=== PATIENT | female | born 1935 | race Caucasian/White ===

== ENCOUNTER 2017-05-12 11:52 | Observation (INO) | payer MEDICARE, BC ==
[~2017-05-12] VITALS: Ht 167.6 cm; Wt 60.1 kg
[2017-05-12] VITALS (13 sets, daily range): BP systolic 131–150; BP diastolic 59–76
[~2017-05-12 11:52] MED LIST: DOCU-109 PO; FERR325T72 PO; LOSA25TA PO; LOSA25TA4 PO; PANT40TA5 PO
--- NOTE | 2017-05-12 12:49 | EKG ---
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
--- NOTE | 2017-05-12 13:01 | PHYS DOC ---
Past Medical History Past Medical History: Hypertension Past Surgical History: Tonsillectomy, Other Additional Past Surgical Histo: SKIN CANCERS REMOVED Alcohol Use: None Drug Use: None Adult General Chief Complaint Chief Complaint: WEAKNESS/GENERALIZED HPI HPI Patient is a 81 year old female presenting to the emergency department for 2 primary complaints including right neck and shoulder pain in addition to generalized weakness. The neck and shoulder pain is in the right trapezius muscle and she says it has been bothering her since January and it hurts whenever she palpates it or moves it and it is relieved by NSAIDs. Is that the pain is gone right now she took 2 Aleve's prior to arrival. She also says that she has been weak and fatigued and she describes this as she is getting tired more easily and getting up walking around makes her more tired than usual. This has been going on for at least the past week. She denies any shortness of breath nausea vomiting diaphoresis fevers chills. Review of Systems Review of Systems Constitutional: Denies fever or chills [] Eyes: Denies change in visual acuity, redness, or eye pain [] HENT: Denies nasal congestion or sore throat [] Respiratory: Denies cough or shortness of breath [] Cardiovascular: No additional information not addressed in HPI [] GI: Denies abdominal pain, nausea, vomiting, bloody stools or diarrhea [] : Denies dysuria or hematuria [] Musculoskeletal: Denies back pain. + R shoulder joint pain [] Integument: Denies rash or skin lesions [] Neurologic: Denies headache, focal weakness or sensory changes [] \\ Current Medications Current Medications Current Medications Medications (Trade) Dose Ordered Sig/Radha Start Time Stop Time Status Last Admin Dose Admin Acetaminophen/ Hydrocodone Bitart (Lortab 5/325) 1 tab 1X ONCE 05/12/17 14:15 05/12/17 14:16 DC 05/12/17 14:35 1 TAB Dexamethasone (Decadron) 6 mg 1X STAT 05/12/17 14:11 05/12/17 14:12 DC 05/12/17 14:35 4 MG Allergies Allergies Allergies Coded Allergies Type Severity Reaction Last Updated Verified No Known Drug Allergies 04/06/16 No Physical Exam Physical Exam Constitutional: Well developed, well nourished, no acute distress, non-toxic appearance. [] HENT: Normocephalic, atraumatic, bilateral external ears normal, oropharynx moist, no oral exudates, nose normal. [] Eyes: PERRLA, EOMI, conjunctiva normal, no discharge. [] Neck: Normal range of motion, positive right cervical spine paraspinal tenderness that goes into her right trapezius muscle. Cardiovascular:Heart rate regular rhythm, no murmur [] Lungs & Thorax: Bilateral breath sounds clear to auscultation [] Abdomen: Bowel sounds normal, soft, no tenderness, no masses, no pulsatile masses. [] Skin: Warm, dry, no erythema, no rash. [] Back: No tenderness, no CVA tenderness. [] Extremities: No tenderness, no cyanosis, no clubbing, ROM intact, no edema. [] Neurologic: Alert and oriented X 3, normal motor function, normal sensory function, no focal deficits noted. [] Current Patient Data Vital Signs Vital Signs Date Time Temp Pulse Resp B/P (MAP) Pulse Ox O2 Delivery O2 Flow Rate FiO2 05/12/17 12:18 98.1 81 20 174/74 (107) 96 Room Air 98.1 Lab Values Laboratory Tests Test 05/12/17 12:09 05/12/17 13:00 05/12/17 13:55 Urine Collection Type Unknown Urine Color Yellow Urine Clarity Clear Urine pH 6.5 Urine Specific [place] 1.025 Urine Protein Negative mg/dL (NEG-TRACE) Urine Glucose (UA) Negative mg/dL (NEG) Urine Ketones (Stick) Negative mg/dL (NEG) Urine Blood Negative (NEG) Urine Nitrite Negative (NEG) Urine Bilirubin Negative (NEG) Urine Urobilinogen Dipstick 1.0 mg/dL (0.2 mg/dL) Urine Leukocyte Esterase Moderate (NEG) Urine RBC 0 /HPF (0-2) Urine WBC 5-10 /HPF (0-4) Urine Squamous Epithelial Cells Mod /LPF Urine Bacteria Few /HPF (0-FEW) Urine Mucus Mod /LPF Sodium Level 141 mmol/L (136-145) Potassium Level 4.4 mmol/L (3.5-5.1) Chloride Level 106 mmol/L (98-107) Carbon Dioxide Level 28 mmol/L (21-32) Anion Gap 7 (6-14) Blood Urea Nitrogen 24 mg/dL (7-20) H Creatinine 0.9 mg/dL (0.6-1.0) Estimated GFR (Cockcroft-Gault) 60.4 BUN/Creatinine Ratio 27 (6-20) H Glucose Level 112 mg/dL (70-99) H Calcium Level 9.4 mg/dL (8.5-10.1) Magnesium Level 2.4 mg/dL (1.8-2.4) Total Bilirubin 0.2 mg/dL (0.2-1.0) Aspartate Amino Transferase (AST) 21 U/L (15-37) Alanine Aminotransferase (ALT) 21 U/L (14-59) Alkaline Phosphatase 102 U/L (46-116) Creatine Kinase 68 U/L (26-192) Troponin I Quantitative < 0.017 ng/mL (0.000-0.055) SD-Qwo-U-Type Natriuretic Peptide 225 pg/mL (0-449) Total Protein 6.5 g/dL (6.4-8.2) Albumin 3.5 g/dL (3.4-5.0) Albumin/Globulin Ratio 1.2 (1.0-1.7) Thyroid Stimulating Hormone (TSH) 3.865 uIU/mL (0.358-3.74) H White Blood Count 5.0 x10^3/uL (4.0-11.0) Red Blood Count 2.49 x10^6/uL (3.50-5.40) L Hemoglobin 7.0 g/dL (12.0-15.5) *L Hematocrit 21.0 % (36.0-47.0) *L Mean Corpuscular Volume 85 fL (79-100) Mean Corpuscular Hemoglobin 28 pg (25-35) Mean Corpuscular Hemoglobin Concent 33 g/dL (31-37) Red Cell Distribution Width 17.0 % (11.5-14.5) H Platelet Count 276 x10^3/uL (140-400) Neutrophils (%) (Auto) 65 % (31-73) Lymphocytes (%) (Auto) 22 % (24-48) L Monocytes (%) (Auto) 9 % (0-9) Eosinophils (%) (Auto) 3 % (0-3) Basophils (%) (Auto) 1 % (0-3) Neutrophils # (Auto) 3.3 x10^3uL (1.8-7.7) Lymphocytes # (Auto) 1.1 x10^3/uL (1.0-4.8) Monocytes # (Auto) 0.4 x10^3/uL (0.0-1.1) Eosinophils # (Auto) 0.2 x10^3/uL (0.0-0.7) Basophils # (Auto) 0.0 x10^3/uL (0.0-0.2) Prothrombin Time 13.2 SEC (11.7-14.0) Prothrombin Time INR 1.1 (0.8-1.1) PTT 27 SEC (24-38) Laboratory Tests 05/12/17 13:55 Laboratory Tests 05/12/17 13:00 EKG EKG Sinus rhythm at 77 bpm with leftward axis no obvious ST elevation or depression and normal T waves. Radiology/Procedures Radiology/Procedures Examination: CT cervical spine without contrast History: History of right-sided neck pain for 3 to 4 days Comparison: None available Technique: Axial CT images of the cervical spine was performed without contrast. Coronal and sagittal reformats are performed PQRS Compliance Statement: One or more of the following individualized dose reduction techniques were utilized for this examination: 1. Automated exposure control 2. Adjustment of the mA and/or kV according to patient size 3. Use of iterative reconstruction technique Findings: The vertebral body heights are maintained. There is moderate to severe intervertebral disc height loss identified at C4-C5, C5-C6, C6-C7 vertebral levels. The bilateral facets are well aligned. The lateral masses of C1 are aligned with C2 vertebra. The C2 dens appears intact. Evaluation of the upper thoracic vertebra is limited due to significant motion artifact. There is mild intervertebral disc and loss identified at C3-C4 vertebral level with small disc protrusion posteriorly. Small anterior and posterior osteophyte formation identified at C4-C5, C5-C6, C6-C7 vertebral levels. Moderate multilevel uncovertebral degenerative changes. No acute fracture identified. Calcification in the apical pleura of the lungs. Impression: 1. No acute fracture of the cervical spine. Correlate clinically. 2. 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 3. Evaluation of the upper thoracic vertebra limited due to motion artifact. DICTATED and SIGNED BY: ELIAS GARCIA MD DATE: 05/12/17 3448 Course & Med Decision Making Course & Med Decision Making Patient is profoundly anemic and she is symptomatic from his so recommended admission so she can get blood transfusion. Patient will be admitted for transfusion and Decadron this morning and pain medicines for her right shoulder pain which I think is from cervical radiculopathy. Dragon Disclaimer Dragon Disclaimer This electronic medical record was generated, in whole or in part, using a voice recognition dictation system. Departure Departure Impression: Primary Impression: Cervical radiculopathy Additional Impression: Anemia Disposition: ADMITTED INPATIENT Admitting Physician: Ronal Xie Condition: STABLE Referrals: MARLO PATE MD (PCP) Problem Qualifiers FEDERICO COWAN DO May 12, 2017 13:01
--- NOTE | 2017-05-12 13:06 | RAD ---
Examination: CT cervical spine without contrast History: History of right-sided neck pain for 3 to 4 days Comparison: None available Technique: Axial CT images of the cervical spine was performed without contrast. Coronal and sagittal reformats are performed PQRS Compliance Statement: One or more of the following individualized dose reduction techniques were utilized for this examination: 1. Automated exposure control 2. Adjustment of the mA and/or kV according to patient size 3. Use of iterative reconstruction technique Findings: The vertebral body heights are maintained. There is moderate to severe intervertebral disc height loss identified at C4-C5, C5-C6, C6-C7 vertebral levels. The bilateral facets are well aligned. The lateral masses of C1 are aligned with C2 vertebra. The C2 dens appears intact. Evaluation of the upper thoracic vertebra is limited due to significant motion artifact. There is mild intervertebral disc and loss identified at C3-C4 vertebral level with small disc protrusion posteriorly. Small anterior and posterior osteophyte formation identified at C4-C5, C5-C6, C6-C7 vertebral levels. Moderate multilevel uncovertebral degenerative changes. No acute fracture identified. Calcification in the apical pleura of the lungs. Impression: 1. No acute fracture of the cervical spine. Correlate clinically. 2. 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 3. Evaluation of the upper thoracic vertebra limited due to motion artifact.
[2017-05-12 13:28] LABS: CALCIUM 9.4 mg/dL (8.5-10.1); CREATININE 0.9 mg/dL (0.6-1.0); GFR 60.4; POTASSIUM 4.4 mmol/L (3.5-5.1)
[2017-05-12 13:34] LABS: ALBUMIN 3.5 g/dL (3.4-5.0); ALBUMIN/GLOBULIN RATIO 1.2 (1.0-1.7); MAGNESIUM 2.4 mg/dL (1.8-2.4); TOTAL BILIRUBIN 0.2 mg/dL (0.2-1.0); TOTAL PROTEIN 6.5 g/dL (6.4-8.2)
[2017-05-12 13:44] LABS: BILIRUBIN,URINE NEGATIVE (NEG); GLUCOSE,URINE NEGATIVE (NEG); NITRITE,URINE NEGATIVE (NEG); PH,URINE 6.5; PROTEIN,URINE NEGATIVE (NEG-TRACE)
[2017-05-12 13:52] LABS: BACTERIA,URINE FEW /HPF (0-FEW); RBC,URINE 0 /HPF (0-2); SQUAMOUS EPITHELIAL CELL,UR MOD /LPF
[2017-05-12 14:09] LABS: BASO % 1 % (0-3); EOS % 3 % (0-3); LYMPH # 1.1 x10^3/uL (1.0-4.8); LYMPH % 22 % (24-48); MEAN CORPUSCULAR HEMOGLOBIN 28 pg (25-35); MEAN CORPUSCULAR HGB CONC 33 g/dL (31-37); MEAN CORPUSCULAR VOLUME 85 fL (79-100); MONO % 9 % (0-9); NEUT % 65 % (31-73); PLATELET COUNT 276 x10^3/uL (140-400); RED BLOOD COUNT 2.49 x10^6/uL (3.50-5.40)
[2017-05-12] MEDS ORDERED: DEXAMETHASONE 4 MG TABLET PO STA (14:11)
[2017-05-12 14:12] LABS: INR 1.1 (0.8-1.1); PROTHROMBIN TIME PATIENT 13.2 SEC (11.7-14.0)
[2017-05-12] MEDS ORDERED: HYDROcodone/APAP 5/325MG 1 TAB TABLET PO ONE (14:15)
[2017-05-12] MEDS ORDERED: fentaNYL PF VIAL 100 MCG/2 ML VIAL IV PRN (14:45)
[2017-05-12] MEDS ORDERED: ONDANSETRON PF 4 MG/2 ML VIAL. IV PRN ×2 (14:45→17:45)
--- NOTE | 2017-05-12 17:35 | PDOC1 ---
History and Physical History of Present Illness History of Present Illness Date of exam 05/12/2017 Chief complaint: Generalized weakness ,tiredness. History of present illness: A 81-year-old female patient with prior history of anemia was been on iron supplements present to the ER with complaints of right neck pain which has been there from last January however for the last 4 days neck pain is getting slowly worse. Also she is getting tired even if she walks to the bathroom. She was followed up by a . [facility] physicians for workup for anemia however they could not able to diagnose her condition as per the patient. Today patient says her pain is been intractable nature and requiring medications to control her pain rated as a 9 out of 10. She denies any other symptoms such as chest pain palpitations syncope. Past medical history: hypertension and anemia Past Medical History Cardiovascular: HTN Family History Family History: Coronary Artery Disease Social History Smoke: No ALCOHOL: none Drugs: None Current Problem List Problem List Problems Medical Problems: (1) Anemia Status: Acute (2) Cervical radiculopathy Status: Acute Current Medications Current Medications Current Medications Medications (Trade) Dose Ordered Sig/Radah Start Time Stop Time Status Last Admin Dose Admin Acetaminophen/ Hydrocodone Bitart (Lortab 5/325) 1 tab PRN Q4HRS PRN 05/12/17 16:00 Dexamethasone (Decadron) 6 mg 1X STAT 05/12/17 14:11 05/12/17 14:12 DC 05/12/17 14:35 4 MG Fentanyl Citrate (Fentanyl 2ml Vial) 50 mcg PRN Q2HR PRN 05/12/17 14:45 05/13/17 14:44 Ondansetron HCl (Zofran) 4 mg PRN Q8HRS PRN 05/12/17 14:45 05/13/17 14:44 Allergies Allergies Allergies Coded Allergies Type Severity Reaction Last Updated Verified No Known Drug Allergies 04/06/16 No ROS Review of System CONSTITUTIONAL: weakness EYES: No recent changes SKIN: No rash or itching CARDIOVASCULAR: No chest pain, syncope, palpitations, or edema RESPIRATORY: No SOB or cough GASTROINTESTINAL: No nausea, vomiting or abdominal pain NEUROLOGICAL: No headaches or weakness ENDOCRINE: No cold or heat intolerance GENITOURINARY: No urgency or frequency of urination MUSCULOSKELETAL: No back pain or joint pain LYMPHATICS: No enlarged lymph nodes PSYCHIATRIC: No anxiety or depression Physical Exam Physical Exam GEN.: No apparent distress. Alert and oriented. 3, thin built HEENT: Head is normocephalic, atraumatic NECK: Supple. LUNGS: Clear to auscultation. Normal anterior airflow HEART: RRR, S1, S2 present. Peripheral pulses intact ABDOMEN: Soft, nontender. Positive bowel sounds. EXTREMITIES: Without any cyanosis. NEUROLOGIC: Normal speech, normal tone PSYCHIATRIC: Normal affect, normal mood. SKIN: No ulcerations Vitals Vitals Vital Signs Date Time Temp Pulse Resp B/P (MAP) Pulse Ox O2 Delivery O2 Flow Rate FiO2 05/12/17 16:17 98.1 78 20 131/59 98.1 05/12/17 16:02 Room Air 05/12/17 15:36 97 Labs Labs Laboratory Tests Test 05/12/17 12:09 05/12/17 13:00 05/12/17 13:55 Urine Collection Type Unknown Urine Color Yellow Urine Clarity Clear Urine pH 6.5 Urine Specific [place] 1.025 Urine Protein Negative mg/dL (NEG-TRACE) Urine Glucose (UA) Negative mg/dL (NEG) Urine Ketones (Stick) Negative mg/dL (NEG) Urine Blood Negative (NEG) Urine Nitrite Negative (NEG) Urine Bilirubin Negative (NEG) Urine Urobilinogen Dipstick 1.0 mg/dL (0.2 mg/dL) Urine Leukocyte Esterase Moderate (NEG) Urine RBC 0 /HPF (0-2) Urine WBC 5-10 /HPF (0-4) Urine Squamous Epithelial Cells Mod /LPF Urine Bacteria Few /HPF (0-FEW) Urine Mucus Mod /LPF Sodium Level 141 mmol/L (136-145) Potassium Level 4.4 mmol/L (3.5-5.1) Chloride Level 106 mmol/L (98-107) Carbon Dioxide Level 28 mmol/L (21-32) Anion Gap 7 (6-14) Blood Urea Nitrogen 24 mg/dL (7-20) Creatinine 0.9 mg/dL (0.6-1.0) Estimated GFR (Cockcroft-Gault) 60.4 BUN/Creatinine Ratio 27 (6-20) Glucose Level 112 mg/dL (70-99) Calcium Level 9.4 mg/dL (8.5-10.1) Magnesium Level 2.4 mg/dL (1.8-2.4) Total Bilirubin 0.2 mg/dL (0.2-1.0) Aspartate Amino Transf (AST/SGOT) 21 U/L (15-37) Alanine Aminotransferase (ALT/SGPT) 21 U/L (14-59) Alkaline Phosphatase 102 U/L (46-116) Creatine Kinase 68 U/L (26-192) Troponin I Quantitative < 0.017 ng/mL (0.000-0.055) LP-Frh-V-Type Natriuretic Peptide 225 pg/mL (0-449) Total Protein 6.5 g/dL (6.4-8.2) Albumin 3.5 g/dL (3.4-5.0) Albumin/Globulin Ratio 1.2 (1.0-1.7) Thyroid Stimulating Hormone (TSH) 3.865 uIU/mL (0.358-3.74) White Blood Count 5.0 x10^3/uL (4.0-11.0) Red Blood Count 2.49 x10^6/uL (3.50-5.40) Hemoglobin 7.0 g/dL (12.0-15.5) Hematocrit 21.0 % (36.0-47.0) Mean Corpuscular Volume 85 fL (79-100) Mean Corpuscular Hemoglobin 28 pg (25-35) Mean Corpuscular Hemoglobin Concent 33 g/dL (31-37) Red Cell Distribution Width 17.0 % (11.5-14.5) Platelet Count 276 x10^3/uL (140-400) Neutrophils (%) (Auto) 65 % (31-73) Lymphocytes (%) (Auto) 22 % (24-48) Monocytes (%) (Auto) 9 % (0-9) Eosinophils (%) (Auto) 3 % (0-3) Basophils (%) (Auto) 1 % (0-3) Neutrophils # (Auto) 3.3 x10^3uL (1.8-7.7) Lymphocytes # (Auto) 1.1 x10^3/uL (1.0-4.8) Monocytes # (Auto) 0.4 x10^3/uL (0.0-1.1) Eosinophils # (Auto) 0.2 x10^3/uL (0.0-0.7) Basophils # (Auto) 0.0 x10^3/uL (0.0-0.2) Prothrombin Time 13.2 SEC (11.7-14.0) Prothromb Time International Ratio 1.1 (0.8-1.1) Activated Partial Thromboplast Time 27 SEC (24-38) Laboratory Tests Test 05/12/17 12:09 05/12/17 13:00 05/12/17 13:55 Urine Collection Type Unknown Urine Color Yellow Urine Clarity Clear Urine pH 6.5 Urine Specific [place] 1.025 Urine Protein Negative mg/dL (NEG-TRACE) Urine Glucose (UA) Negative mg/dL (NEG) Urine Ketones (Stick) Negative mg/dL (NEG) Urine Blood Negative (NEG) Urine Nitrite Negative (NEG) Urine Bilirubin Negative (NEG) Urine Urobilinogen Dipstick 1.0 mg/dL (0.2 mg/dL) Urine Leukocyte Esterase Moderate (NEG) Urine RBC 0 /HPF (0-2) Urine WBC 5-10 /HPF (0-4) Urine Squamous Epithelial Cells Mod /LPF Urine Bacteria Few /HPF (0-FEW) Urine Mucus Mod /LPF Sodium Level 141 mmol/L (136-145) Potassium Level 4.4 mmol/L (3.5-5.1) Chloride Level 106 mmol/L (98-107) Carbon Dioxide Level 28 mmol/L (21-32) Anion Gap 7 (6-14) Blood Urea Nitrogen 24 mg/dL (7-20) Creatinine 0.9 mg/dL (0.6-1.0) Estimated GFR (Cockcroft-Gault) 60.4 BUN/Creatinine Ratio 27 (6-20) Glucose Level 112 mg/dL (70-99) Calcium Level 9.4 mg/dL (8.5-10.1) Magnesium Level 2.4 mg/dL (1.8-2.4) Total Bilirubin 0.2 mg/dL (0.2-1.0) Aspartate Amino Transf (AST/SGOT) 21 U/L (15-37) Alanine Aminotransferase (ALT/SGPT) 21 U/L (14-59) Alkaline Phosphatase 102 U/L (46-116) Creatine Kinase 68 U/L (26-192) Troponin I Quantitative < 0.017 ng/mL (0.000-0.055) BD-Xnb-J-Type Natriuretic Peptide 225 pg/mL (0-449) Total Protein 6.5 g/dL (6.4-8.2) Albumin 3.5 g/dL (3.4-5.0) Albumin/Globulin Ratio 1.2 (1.0-1.7) Thyroid Stimulating Hormone (TSH) 3.865 uIU/mL (0.358-3.74) White Blood Count 5.0 x10^3/uL (4.0-11.0) Red Blood Count 2.49 x10^6/uL (3.50-5.40) Hemoglobin 7.0 g/dL (12.0-15.5) Hematocrit 21.0 % (36.0-47.0) Mean Corpuscular Volume 85 fL (79-100) Mean Corpuscular Hemoglobin 28 pg (25-35) Mean Corpuscular Hemoglobin Concent 33 g/dL (31-37) Red Cell Distribution Width 17.0 % (11.5-14.5) Platelet Count 276 x10^3/uL (140-400) Neutrophils (%) (Auto) 65 % (31-73) Lymphocytes (%) (Auto) 22 % (24-48) Monocytes (%) (Auto) 9 % (0-9) Eosinophils (%) (Auto) 3 % (0-3) Basophils (%) (Auto) 1 % (0-3) Neutrophils # (Auto) 3.3 x10^3uL (1.8-7.7) Lymphocytes # (Auto) 1.1 x10^3/uL (1.0-4.8) Monocytes # (Auto) 0.4 x10^3/uL (0.0-1.1) Eosinophils # (Auto) 0.2 x10^3/uL (0.0-0.7) Basophils # (Auto) 0.0 x10^3/uL (0.0-0.2) Prothrombin Time 13.2 SEC (11.7-14.0) Prothromb Time International Ratio 1.1 (0.8-1.1) Activated Partial Thromboplast Time 27 SEC (24-38) VTE Prophylaxis Ordered VTE Prophylaxis Devices: Yes VTE Pharmacological Prophylaxi: Contraindicated Assessment/Plan Assessment/Plan Acute on chronic anemia baseline hemoglobin around 10: 2 units of PRBC has been ordered recheck hemoglobin in a.m. patient will be benefited if she follows up with their primary care doctor or hematology as an outpatient basis continue ferrous sulfate. Next Acute on chronic right neck pain: She has been evaluated by her primary care doctor from January, initial CT of the neck showed a severe degenerative changes, I will consult Dr. hurd for further evaluation, continue hydrocodone with the Tylenol as needed for pain control. Hypertension: Currently stable continue home medications. Case discussed with the ER physician/labs and images reviewed/anticipated discharge, based on patient's clinical response. SADIA GODFREY MD May 12, 2017 17:35
[2017-05-12] MEDS ORDERED: ALBUTEROL SULFATE 2.5 MG/3 ML NEBU. NEB PRN (17:45)
[2017-05-12] MEDS ORDERED: ACETAMINOPHEN 325 MG TABLET. PO PRN (17:45)
[2017-05-12] MEDS ORDERED: hydrALAZINE 20 MG/ML VIAL. IVP PRN (17:45)
[2017-05-12] MEDS: FERROUS SULFATE 325 MG TABLET. PO SCH (18:14)
[2017-05-12] MEDS: HYDROcodone/APAP 5/325MG 1 TAB TABLET PO PRN (18:15)
[2017-05-12] MEDS ORDERED: LOSARTAN POTASSIUM 25 MG TABLET. PO SCH (21:00)
[2017-05-13] MEDS: HYDROcodone/APAP 5/325MG 1 TAB TABLET PO PRN ×2 (02:19→08:22)
--- NOTE | 2017-05-13 02:40 | ACF ---
Admission Forms Criteria ANEMIA, IRON DEFICIENCY OR UNSPECIFIED Clinical Indications for Inpatient Care (Place 'X' for any and all applicable criteria): Admission is indicated for ANY ONE of the following(1)(2)(3)(4)(5)(6)(7): [x] I. Inpatient admission required rather than observation care (Also use Anemia, Iron Deficiency or Unspecified: Observation Care guideline as appropriate) because of ANY ONE of the following: [] a) Hemodynamic instability that is severe or persistent [] b) Active bleeding that cannot be rapidly controlled [] c) CVS symptoms (i.e., dyspnea, chest pain, heart failure) that are severe or persistent [] d) Neurologic symptoms (i.e., cognitive impairment, recurrent syncope or near syncope) that are severe or persistent [] e) Cardiac arrhythmias of immediate concern [] f) Acute peripheral ischemia (e.g., pulseless, cool, mottled, or cyanotic extremity) [] g) High-risk low platelet count [] h) Acute renal failure [] i) Ongoing transfusion for blood loss (greater than 2 units) [] j) IV fluid to replace significant ongoing (eg, >24 hours) losses (> 3 L/m2 per day) [] k) Pulmonary artery catheter monitoring [] l) Supplemental oxygen or respiratory treatments for over 24 hours that are performable only in acute inpatient setting [] m) Immediate inpatient surgery [ x] n) Other condition, treatment or monitoring requiring inpatient admission [] II Active massive hemorrhage [] III. Active hemolysis with rapidly progressive anemia [A](6) Extended stay beyond goal length of stay may be needed for (17)(18) []a) Diagnosed cause of anemia requiring longer hospitalization (eg, active GI bleeding, immune hemolysis requiring electrophoresis, complications of malignancy requiring acute care []b) Continued emergent anemia indicators (23) []c) Transfusion reactions []d) Associated leukopenia or thrombocytopenia needing inpatient care []e) Active comorbidities (eg, renal failure, heart failure) The original [facility] Care [employer] content created by [employer] [facility] [employer] has been revised. The portions of the content which have been revised are identified through the use of italic text or in bold. [facility] Guidelines has neither reviewed nor approved the modified material. All other unmodified content is copyright [employer] [facility] Care Guidelines. Please see references footnoted in the original [facility] edition 2016 Admission Criteria Met?: Yes CATINA DAVIDSON May 13, 2017 02:40
[2017-05-13 03:02] VITALS: BP 125/44
[2017-05-13 06:09] LABS: BASO % 0 % (0-3); EOS % 0 % (0-3); HEMATOCRIT 29.9 % (36.0-47.0); HEMOGLOBIN 9.8 g/dL (12.0-15.5); LYMPH # 1.1 x10^3/uL (1.0-4.8); LYMPH % 15 % (24-48); MEAN CORPUSCULAR HEMOGLOBIN 28 pg (25-35); MEAN CORPUSCULAR HGB CONC 33 g/dL (31-37); MEAN CORPUSCULAR VOLUME 87 fL (79-100); MONO % 7 % (0-9); NEUT % 78 % (31-73); PLATELET COUNT 264 x10^3/uL (140-400); RED BLOOD COUNT 3.45 x10^6/uL (3.50-5.40); RED CELL DISTRIBUTION WIDTH 15.8 % (11.5-14.5); WHITE BLOOD COUNT 7.6 x10^3/uL (4.0-11.0)
[2017-05-13 06:29] LABS: CALCIUM 8.4 mg/dL (8.5-10.1); CREATININE 0.9 mg/dL (0.6-1.0); GFR 60.4; POTASSIUM 4.2 mmol/L (3.5-5.1)
[2017-05-13 07:00] VITALS: BP 131/60
[2017-05-13] MEDS ORDERED: PANTOPRAZOLE 40 MG TABLET.DR. PO SCH (07:30)
[2017-05-13] MEDS: FERROUS SULFATE 325 MG TABLET. PO SCH (08:21)
[2017-05-13] MEDS ORDERED: DOCUSATE SODIUM 100 MG CAPSULE. PO SCH (09:00)
--- NOTE | 2017-05-13 10:15 | PDOC2 ---
CONSULT Date of Consult Date of Consult DATE: 05/13/17 TIME: 09:56 Reason for Consult Reason for Consult: Rehab evaluation about he neck pain Referring Physician Referring Physician: . Identification/Chief Complaint Chief Complaint Right side neck pain with radiation to her right shoulder for about 3 months without any injury. Problems: Source Source: Patient History of Present Illness Reason for Visit: This is a 81 year old right handed female with right sided neck pain with radiation to right shoulder blade area started about 3 months ago without any injury and she denies any numbness or weakness in her extremities or any trouble with bowel or bladder control or balance.She has been taking naprosyn 220 mg daily and using heating pad and lidocaine patches and got admitted through ER as pain is not getting any better and she was found with anemia. She denies any GI upset taking naprosyn but iron pills upset her stomach.[place]. Past Medical History Cardiovascular: HTN Heme/Onc: Anemia NOS, Other Family History Family History: Coronary Artery Disease Social History No ALCOHOL: none Drugs: None Current Problem List Problem List Problems Medical Problems: (1) Anemia Status: Acute (2) Cervical radiculopathy Status: Acute Current Medications Current Medications Current Medications Dexamethasone (Decadron) 6 mg 1X STAT PO Last administered on 05/12/17 14:35; Start 05/12/17 at 14:11; Stop 05/12/17 at 14:12; Status DC Acetaminophen/ Hydrocodone Bitart (Lortab 5/325) 1 tab 1X ONCE PO Last administered on 05/12/17 14:35; Start 05/12/17 at 14:15; Stop 05/12/17 at 14:16; Status DC Ondansetron HCl (Zofran) 4 mg PRN Q8HRS PRN IV NAUSEA/VOMITING; Start 05/12/17 at 14:45; Stop 05/12/17 at 17:41; Status DC Fentanyl Citrate (Fentanyl 2ml Vial) 50 mcg PRN Q2HR PRN IV PAIN; Start at 14:45; Stop 05/13/17 at 14:44 Acetaminophen/ Hydrocodone Bitart (Lortab 5/325) 1 tab PRN Q4HRS PRN PO PAIN Last administered on 05/13/17 08:22; Start 05/12/17 at 16:00 Ferrous Sulfate (Feosol) 325 mg BIDWMEALS PO Last administered on 05/13/17 08: 21; Start 05/12/17 at 18:00 Losartan Potassium (Cozaar) 25 mg HS PO Last administered on 05/12/17 21:35; Start 05/12/17 at 21:00 Pantoprazole Sodium (Protonix) 40 mg DAILYAC PO ; Start 05/13/17 at 07:30 Acetaminophen (Tylenol) 325 mg PRN Q6HRS PRN PO MILD PAIN / TEMP; Start at 17:45 Hydralazine HCl (Apresoline) 10 mg PRN Q4HRS PRN IVP ELEVATED BP, SEE COMMENTS ; Start 05/12/17 at 17:45 Ondansetron HCl (Zofran) 4 mg PRN Q8HRS PRN IV NAUSEA/VOMITING; Start 05/12/17 at 17:45 Albuterol Sulfate (Ventolin Neb Soln) 2.5 mg PRN Q4HRS PRN NEB SHORTNESS OF BREATH; Start 05/12/17 at 17:45 Docusate Sodium (Colace) 100 mg DAILY PO Last administered on 05/13/17 08:21; Start 05/13/17 at 09:00 Active Scripts Active Cozaar (Losartan Potassium) 25 Mg Tablet 25 Mg PO HS Pantoprazole Sodium 40 Mg Tablet.dr 40 Mg PO DAILYAC Feosol (Ferrous Sulfate) 325 Mg Tablet 325 Mg PO BIDWMEALS Colace (Docusate Sodium) 100 Mg Capsule 100 Mg PO PRN DAILY PRN Allergies Allergies: Coded Allergies: No Known Drug Allergies (Unverified , 04/06/16) Physical Exam General: Alert, Oriented X3, Cooperative, No acute distress HEENT: PERRLA, Mucous membr. moist/pink Lungs: Clear to auscultation, Normal air movement Heart: Regular rate, Normal S1, Normal S2, No murmurs Abdomen: Normal bowel sounds, Soft, No tenderness, No hepatosplenomegaly, No masses Extremities: Other (She had tenderness to palption over right cervical paraspinal,upper trapezius and levator scapulae muscles and painfully limited cervical spine ROM without any muscle spasm and he had 5/5 grade muscle strength overall with some degree of thenar eminence muscle atrophy and negative Tinel's sign over median nerve at wrist and ulnar nerve at wrist and elbow.) Skin: No rashes, No breakdown Neuro: Normal gait, Normal speech, Normal tone, Sensation intact, Reflexes 2+ ( She had 1+ knee jerks and absent ankle jerks bilaterally.) Psych/Mental Status: Mental status NL, Mood NL Vitals VITALS Vital Signs Date Time Temp Pulse Resp B/P (MAP) Pulse Ox O2 Delivery O2 Flow Rate FiO2 05/13/17 09:40 95 Room Air 05/13/17 07:00 97.9 73 18 131/60 (83) 97.9 Labs Labs Laboratory Tests Test 05/12/17 12:09 05/12/17 13:00 05/12/17 13:55 05/13/17 05:40 Urine Collection Type Unknown Urine Color Yellow Urine Clarity Clear Urine pH 6.5 Urine Specific [employer] 1.025 Urine Protein Negative mg/dL (NEG-TRACE) Urine Glucose (UA) Negative mg/dL (NEG) Urine Ketones (Stick) Negative mg/dL (NEG) Urine Blood Negative (NEG) Urine Nitrite Negative (NEG) Urine Bilirubin Negative (NEG) Urine Urobilinogen Dipstick 1.0 mg/dL (0.2 mg/dL) Urine Leukocyte Esterase Moderate (NEG) Urine RBC 0 /HPF (0-2) Urine WBC 5-10 /HPF (0-4) Urine Squamous Epithelial Cells Mod /LPF Urine Bacteria Few /HPF (0-FEW) Urine Mucus Mod /LPF Sodium Level 141 mmol/L (136-145) 137 mmol/L (136-145) Potassium Level 4.4 mmol/L (3.5-5.1) 4.2 mmol/L (3.5-5.1) Chloride Level 106 mmol/L (98-107) 107 mmol/L (98-107) Carbon Dioxide Level 28 mmol/L (21-32) 27 mmol/L (21-32) Anion Gap 7 (6-14) 3 (6-14) Blood Urea Nitrogen 24 mg/dL (7-20) 24 mg/dL (7-20) Creatinine 0.9 mg/dL (0.6-1.0) 0.9 mg/dL (0.6-1.0) Estimated GFR (Cockcroft-Gault) 60.4 60.4 BUN/Creatinine Ratio 27 (6-20) Glucose Level 112 mg/dL (70-99) 113 mg/dL (70-99) Calcium Level 9.4 mg/dL (8.5-10.1) 8.4 mg/dL (8.5-10.1) Magnesium Level 2.4 mg/dL (1.8-2.4) Total Bilirubin 0.2 mg/dL (0.2-1.0) Aspartate Amino Transf (AST/SGOT) 21 U/L (15-37) Alanine Aminotransferase (ALT/SGPT) 21 U/L (14-59) Alkaline Phosphatase 102 U/L (46-116) Creatine Kinase 68 U/L (26-192) Troponin I Quantitative < 0.017 ng/mL (0.000-0.055) XD-Zcv-B-Type Natriuretic Peptide 225 pg/mL (0-449) Total Protein 6.5 g/dL (6.4-8.2) Albumin 3.5 g/dL (3.4-5.0) Albumin/Globulin Ratio 1.2 (1.0-1.7) Thyroid Stimulating Hormone (TSH) 3.865 uIU/mL (0.358-3.74) White Blood Count 5.0 x10^3/uL (4.0-11.0) 7.6 x10^3/uL (4.0-11.0) Red Blood Count 2.49 x10^6/uL (3.50-5.40) 3.45 x10^6/uL (3.50-5.40) Hemoglobin 7.0 g/dL (12.0-15.5) 9.8 g/dL (12.0-15.5) Hematocrit 21.0 % (36.0-47.0) 29.9 % (36.0-47.0) Mean Corpuscular Volume 85 fL (79-100) 87 fL (79-100) Mean Corpuscular Hemoglobin 28 pg (25-35) 28 pg (25-35) Mean Corpuscular Hemoglobin Concent 33 g/dL (31-37) 33 g/dL (31-37) Red Cell Distribution Width 17.0 % (11.5-14.5) 15.8 % (11.5-14.5) Platelet Count 276 x10^3/uL (140-400) 264 x10^3/uL (140-400) Neutrophils (%) (Auto) 65 % (31-73) 78 % (31-73) Lymphocytes (%) (Auto) 22 % (24-48) 15 % (24-48) Monocytes (%) (Auto) 9 % (0-9) 7 % (0-9) Eosinophils (%) (Auto) 3 % (0-3) 0 % (0-3) Basophils (%) (Auto) 1 % (0-3) 0 % (0-3) Neutrophils # (Auto) 3.3 x10^3uL (1.8-7.7) 5.9 x10^3uL (1.8-7.7) Lymphocytes # (Auto) 1.1 x10^3/uL (1.0-4.8) 1.1 x10^3/uL (1.0-4.8) Monocytes # (Auto) 0.4 x10^3/uL (0.0-1.1) 0.5 x10^3/uL (0.0-1.1) Eosinophils # (Auto) 0.2 x10^3/uL (0.0-0.7) 0.0 x10^3/uL (0.0-0.7) Basophils # (Auto) 0.0 x10^3/uL (0.0-0.2) 0.0 x10^3/uL (0.0-0.2) Prothrombin Time 13.2 SEC (11.7-14.0) Prothromb Time International Ratio 1.1 (0.8-1.1) Activated Partial Thromboplast Time 27 SEC (24-38) Laboratory Tests Test 05/12/17 12:09 05/12/17 13:00 05/12/17 13:55 05/13/17 05:40 Urine Collection Type Unknown Urine Color Yellow Urine Clarity Clear Urine pH 6.5 Urine Specific [employer] 1.025 Urine Protein Negative mg/dL (NEG-TRACE) Urine Glucose (UA) Negative mg/dL (NEG) Urine Ketones (Stick) Negative mg/dL (NEG) Urine Blood Negative (NEG) Urine Nitrite Negative (NEG) Urine Bilirubin Negative (NEG) Urine Urobilinogen Dipstick 1.0 mg/dL (0.2 mg/dL) Urine Leukocyte Esterase Moderate (NEG) Urine RBC 0 /HPF (0-2) Urine WBC 5-10 /HPF (0-4) Urine Squamous Epithelial Cells Mod /LPF Urine Bacteria Few /HPF (0-FEW) Urine Mucus Mod /LPF Sodium Level 141 mmol/L (136-145) 137 mmol/L (136-145) Potassium Level 4.4 mmol/L (3.5-5.1) 4.2 mmol/L (3.5-5.1) Chloride Level 106 mmol/L (98-107) 107 mmol/L (98-107) Carbon Dioxide Level 28 mmol/L (21-32) 27 mmol/L (21-32) Anion Gap 7 (6-14) 3 (6-14) Blood Urea Nitrogen 24 mg/dL (7-20) 24 mg/dL (7-20) Creatinine 0.9 mg/dL (0.6-1.0) 0.9 mg/dL (0.6-1.0) Estimated GFR (Cockcroft-Gault) 60.4 60.4 BUN/Creatinine Ratio 27 (6-20) Glucose Level 112 mg/dL (70-99) 113 mg/dL (70-99) Calcium Level 9.4 mg/dL (8.5-10.1) 8.4 mg/dL (8.5-10.1) Magnesium Level 2.4 mg/dL (1.8-2.4) Total Bilirubin 0.2 mg/dL (0.2-1.0) Aspartate Amino Transf (AST/SGOT) 21 U/L (15-37) Alanine Aminotransferase (ALT/SGPT) 21 U/L (14-59) Alkaline Phosphatase 102 U/L (46-116) Creatine Kinase 68 U/L (26-192) Troponin I Quantitative < 0.017 ng/mL (0.000-0.055) QK-Yit-D-Type Natriuretic Peptide 225 pg/mL (0-449) Total Protein 6.5 g/dL (6.4-8.2) Albumin 3.5 g/dL (3.4-5.0) Albumin/Globulin Ratio 1.2 (1.0-1.7) Thyroid Stimulating Hormone (TSH) 3.865 uIU/mL (0.358-3.74) White Blood Count 5.0 x10^3/uL (4.0-11.0) 7.6 x10^3/uL (4.0-11.0) Red Blood Count 2.49 x10^6/uL (3.50-5.40) 3.45 x10^6/uL (3.50-5.40) Hemoglobin 7.0 g/dL (12.0-15.5) 9.8 g/dL (12.0-15.5) Hematocrit 21.0 % (36.0-47.0) 29.9 % (36.0-47.0) Mean Corpuscular Volume 85 fL (79-100) 87 fL (79-100) Mean Corpuscular Hemoglobin 28 pg (25-35) 28 pg (25-35) Mean Corpuscular Hemoglobin Concent 33 g/dL (31-37) 33 g/dL (31-37) Red Cell Distribution Width 17.0 % (11.5-14.5) 15.8 % (11.5-14.5) Platelet Count 276 x10^3/uL (140-400) 264 x10^3/uL (140-400) Neutrophils (%) (Auto) 65 % (31-73) 78 % (31-73) Lymphocytes (%) (Auto) 22 % (24-48) 15 % (24-48) Monocytes (%) (Auto) 9 % (0-9) 7 % (0-9) Eosinophils (%) (Auto) 3 % (0-3) 0 % (0-3) Basophils (%) (Auto) 1 % (0-3) 0 % (0-3) Neutrophils # (Auto) 3.3 x10^3uL (1.8-7.7) 5.9 x10^3uL (1.8-7.7) Lymphocytes # (Auto) 1.1 x10^3/uL (1.0-4.8) 1.1 x10^3/uL (1.0-4.8) Monocytes # (Auto) 0.4 x10^3/uL (0.0-1.1) 0.5 x10^3/uL (0.0-1.1) Eosinophils # (Auto) 0.2 x10^3/uL (0.0-0.7) 0.0 x10^3/uL (0.0-0.7) Basophils # (Auto) 0.0 x10^3/uL (0.0-0.2) 0.0 x10^3/uL (0.0-0.2) Prothrombin Time 13.2 SEC (11.7-14.0) Prothromb Time International Ratio 1.1 (0.8-1.1) Activated Partial Thromboplast Time 27 SEC (24-38) Images Images She had 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 Anemia Peripheral neuropathy. Rec:To obtain mri scan of cervical vertebrae to rule out any new disc bulging or herniation,to heve physical therapy to see her and arrange for out patine physical therapy at [facility] closer to her home and home when medically stable and to consider referral to pain clinic for consideration of cervical ESIs if her neck pain persists after physical therapy. NOEMY ENGEL MD May 13, 2017 10:15
--- NOTE | 2017-05-13 10:42 | PDOC ---
PROGRESS NOTES Chief Complaint Chief Complaint cc: weakness A/P Acute on chronic anemia : Hemoglobin improved with 2 units of PRBC transfusion. Patient denies any upper or lower GI bleedings, she did have extensive workup by . [facility] for anemia. Acute on chronic right neck pain: As discussed with Dr. JAYMIE SCOTT physical medicine and rehabilitation physician, will order MRI . Above plan discussed with the patient she would like to go home today, if MRI is done today she'll stay if not by 4 PM she wanted to leave. She would like to follow up with primary care doctor as an outpatient basis Hypertension: Chronic stable History of Present Illness History of Present Illness Neck pain better 4 out of 10 no radiation no tingling or numbness Vitals Vitals Vital Signs Date Time Temp Pulse Resp B/P (MAP) Pulse Ox O2 Delivery O2 Flow Rate FiO2 05/13/17 09:40 95 Room Air 05/13/17 07:00 97.9 73 18 131/60 (83) 97.9 Physical Exam General: Alert, Oriented X3, Cooperative, No acute distress Heart: Regular rate, Normal S1, Normal S2, No murmurs Abdomen: Normal bowel sounds, Soft, No tenderness, No hepatosplenomegaly, No masses Extremities: Other (She had tenderness to palption over right cervical paraspinal,upper trapezius and levator scapulae muscles and painfully limited cervical spine ROM without any muscle spasm and he had 5/5 grade muscle strength overall with some degree of thenar eminence muscle atrophy and negative Tinel's sign over median nerve at wrist and ulnar nerve at wrist and elbow.) Skin: No rashes, No breakdown Labs LABS Laboratory Tests Test 05/12/17 12:09 05/12/17 13:00 05/12/17 13:55 05/13/17 05:40 Urine Collection Type Unknown Urine Color Yellow Urine Clarity Clear Urine pH 6.5 Urine Specific [place] 1.025 Urine Protein Negative mg/dL (NEG-TRACE) Urine Glucose (UA) Negative mg/dL (NEG) Urine Ketones (Stick) Negative mg/dL (NEG) Urine Blood Negative (NEG) Urine Nitrite Negative (NEG) Urine Bilirubin Negative (NEG) Urine Urobilinogen Dipstick 1.0 mg/dL (0.2 mg/dL) Urine Leukocyte Esterase Moderate (NEG) Urine RBC 0 /HPF (0-2) Urine WBC 5-10 /HPF (0-4) Urine Squamous Epithelial Cells Mod /LPF Urine Bacteria Few /HPF (0-FEW) Urine Mucus Mod /LPF Sodium Level 141 mmol/L (136-145) 137 mmol/L (136-145) Potassium Level 4.4 mmol/L (3.5-5.1) 4.2 mmol/L (3.5-5.1) Chloride Level 106 mmol/L (98-107) 107 mmol/L (98-107) Carbon Dioxide Level 28 mmol/L (21-32) 27 mmol/L (21-32) Anion Gap 7 (6-14) 3 (6-14) Blood Urea Nitrogen 24 mg/dL (7-20) 24 mg/dL (7-20) Creatinine 0.9 mg/dL (0.6-1.0) 0.9 mg/dL (0.6-1.0) Estimated GFR (Cockcroft-Gault) 60.4 60.4 BUN/Creatinine Ratio 27 (6-20) Glucose Level 112 mg/dL (70-99) 113 mg/dL (70-99) Calcium Level 9.4 mg/dL (8.5-10.1) 8.4 mg/dL (8.5-10.1) Magnesium Level 2.4 mg/dL (1.8-2.4) Total Bilirubin 0.2 mg/dL (0.2-1.0) Aspartate Amino Transf (AST/SGOT) 21 U/L (15-37) Alanine Aminotransferase (ALT/SGPT) 21 U/L (14-59) Alkaline Phosphatase 102 U/L (46-116) Creatine Kinase 68 U/L (26-192) Troponin I Quantitative < 0.017 ng/mL (0.000-0.055) UV-Bpc-T-Type Natriuretic Peptide 225 pg/mL (0-449) Total Protein 6.5 g/dL (6.4-8.2) Albumin 3.5 g/dL (3.4-5.0) Albumin/Globulin Ratio 1.2 (1.0-1.7) Thyroid Stimulating Hormone (TSH) 3.865 uIU/mL (0.358-3.74) White Blood Count 5.0 x10^3/uL (4.0-11.0) 7.6 x10^3/uL (4.0-11.0) Red Blood Count 2.49 x10^6/uL (3.50-5.40) 3.45 x10^6/uL (3.50-5.40) Hemoglobin 7.0 g/dL (12.0-15.5) 9.8 g/dL (12.0-15.5) Hematocrit 21.0 % (36.0-47.0) 29.9 % (36.0-47.0) Mean Corpuscular Volume 85 fL (79-100) 87 fL (79-100) Mean Corpuscular Hemoglobin 28 pg (25-35) 28 pg (25-35) Mean Corpuscular Hemoglobin Concent 33 g/dL (31-37) 33 g/dL (31-37) Red Cell Distribution Width 17.0 % (11.5-14.5) 15.8 % (11.5-14.5) Platelet Count 276 x10^3/uL (140-400) 264 x10^3/uL (140-400) Neutrophils (%) (Auto) 65 % (31-73) 78 % (31-73) Lymphocytes (%) (Auto) 22 % (24-48) 15 % (24-48) Monocytes (%) (Auto) 9 % (0-9) 7 % (0-9) Eosinophils (%) (Auto) 3 % (0-3) 0 % (0-3) Basophils (%) (Auto) 1 % (0-3) 0 % (0-3) Neutrophils # (Auto) 3.3 x10^3uL (1.8-7.7) 5.9 x10^3uL (1.8-7.7) Lymphocytes # (Auto) 1.1 x10^3/uL (1.0-4.8) 1.1 x10^3/uL (1.0-4.8) Monocytes # (Auto) 0.4 x10^3/uL (0.0-1.1) 0.5 x10^3/uL (0.0-1.1) Eosinophils # (Auto) 0.2 x10^3/uL (0.0-0.7) 0.0 x10^3/uL (0.0-0.7) Basophils # (Auto) 0.0 x10^3/uL (0.0-0.2) 0.0 x10^3/uL (0.0-0.2) Prothrombin Time 13.2 SEC (11.7-14.0) Prothromb Time International Ratio 1.1 (0.8-1.1) Activated Partial Thromboplast Time 27 SEC (24-38) Assessment and Plan Assessmemt and Plan Problems Medical Problems: (1) Anemia Status: Acute (2) Cervical radiculopathy Status: Acute Problems: Comment Review of Relevant I have reviewed the following items [place] (where applicable) has been applied. Labs Laboratory Tests Test 05/12/17 12:09 05/12/17 13:00 05/12/17 13:55 05/13/17 05:40 Urine Collection Type Unknown Urine Color Yellow Urine Clarity Clear Urine pH 6.5 Urine Specific [place] 1.025 Urine Protein Negative mg/dL (NEG-TRACE) Urine Glucose (UA) Negative mg/dL (NEG) Urine Ketones (Stick) Negative mg/dL (NEG) Urine Blood Negative (NEG) Urine Nitrite Negative (NEG) Urine Bilirubin Negative (NEG) Urine Urobilinogen Dipstick 1.0 mg/dL (0.2 mg/dL) Urine Leukocyte Esterase Moderate (NEG) Urine RBC 0 /HPF (0-2) Urine WBC 5-10 /HPF (0-4) Urine Squamous Epithelial Cells Mod /LPF Urine Bacteria Few /HPF (0-FEW) Urine Mucus Mod /LPF Sodium Level 141 mmol/L (136-145) 137 mmol/L (136-145) Potassium Level 4.4 mmol/L (3.5-5.1) 4.2 mmol/L (3.5-5.1) Chloride Level 106 mmol/L (98-107) 107 mmol/L (98-107) Carbon Dioxide Level 28 mmol/L (21-32) 27 mmol/L (21-32) Anion Gap 7 (6-14) 3 (6-14) Blood Urea Nitrogen 24 mg/dL (7-20) 24 mg/dL (7-20) Creatinine 0.9 mg/dL (0.6-1.0) 0.9 mg/dL (0.6-1.0) Estimated GFR (Cockcroft-Gault) 60.4 60.4 BUN/Creatinine Ratio 27 (6-20) Glucose Level 112 mg/dL (70-99) 113 mg/dL (70-99) Calcium Level 9.4 mg/dL (8.5-10.1) 8.4 mg/dL (8.5-10.1) Magnesium Level 2.4 mg/dL (1.8-2.4) Total Bilirubin 0.2 mg/dL (0.2-1.0) Aspartate Amino Transf (AST/SGOT) 21 U/L (15-37) Alanine Aminotransferase (ALT/SGPT) 21 U/L (14-59) Alkaline Phosphatase 102 U/L (46-116) Creatine Kinase 68 U/L (26-192) Troponin I Quantitative < 0.017 ng/mL (0.000-0.055) NX-Hdk-O-Type Natriuretic Peptide 225 pg/mL (0-449) Total Protein 6.5 g/dL (6.4-8.2) Albumin 3.5 g/dL (3.4-5.0) Albumin/Globulin Ratio 1.2 (1.0-1.7) Thyroid Stimulating Hormone (TSH) 3.865 uIU/mL (0.358-3.74) White Blood Count 5.0 x10^3/uL (4.0-11.0) 7.6 x10^3/uL (4.0-11.0) Red Blood Count 2.49 x10^6/uL (3.50-5.40) 3.45 x10^6/uL (3.50-5.40) Hemoglobin 7.0 g/dL (12.0-15.5) 9.8 g/dL (12.0-15.5) Hematocrit 21.0 % (36.0-47.0) 29.9 % (36.0-47.0) Mean Corpuscular Volume 85 fL (79-100) 87 fL (79-100) Mean Corpuscular Hemoglobin 28 pg (25-35) 28 pg (25-35) Mean Corpuscular Hemoglobin Concent 33 g/dL (31-37) 33 g/dL (31-37) Red Cell Distribution Width 17.0 % (11.5-14.5) 15.8 % (11.5-14.5) Platelet Count 276 x10^3/uL (140-400) 264 x10^3/uL (140-400) Neutrophils (%) (Auto) 65 % (31-73) 78 % (31-73) Lymphocytes (%) (Auto) 22 % (24-48) 15 % (24-48) Monocytes (%) (Auto) 9 % (0-9) 7 % (0-9) Eosinophils (%) (Auto) 3 % (0-3) 0 % (0-3) Basophils (%) (Auto) 1 % (0-3) 0 % (0-3) Neutrophils # (Auto) 3.3 x10^3uL (1.8-7.7) 5.9 x10^3uL (1.8-7.7) Lymphocytes # (Auto) 1.1 x10^3/uL (1.0-4.8) 1.1 x10^3/uL (1.0-4.8) Monocytes # (Auto) 0.4 x10^3/uL (0.0-1.1) 0.5 x10^3/uL (0.0-1.1) Eosinophils # (Auto) 0.2 x10^3/uL (0.0-0.7) 0.0 x10^3/uL (0.0-0.7) Basophils # (Auto) 0.0 x10^3/uL (0.0-0.2) 0.0 x10^3/uL (0.0-0.2) Prothrombin Time 13.2 SEC (11.7-14.0) Prothromb Time International Ratio 1.1 (0.8-1.1) Activated Partial Thromboplast Time 27 SEC (24-38) Laboratory Tests Test 05/12/17 12:09 05/12/17 13:00 05/12/17 13:55 05/13/17 05:40 Urine Collection Type Unknown Urine Color Yellow Urine Clarity Clear Urine pH 6.5 Urine Specific [place] 1.025 Urine Protein Negative mg/dL (NEG-TRACE) Urine Glucose (UA) Negative mg/dL (NEG) Urine Ketones (Stick) Negative mg/dL (NEG) Urine Blood Negative (NEG) Urine Nitrite Negative (NEG) Urine Bilirubin Negative (NEG) Urine Urobilinogen Dipstick 1.0 mg/dL (0.2 mg/dL) Urine Leukocyte Esterase Moderate (NEG) Urine RBC 0 /HPF (0-2) Urine WBC 5-10 /HPF (0-4) Urine Squamous Epithelial Cells Mod /LPF Urine Bacteria Few /HPF (0-FEW) Urine Mucus Mod /LPF Sodium Level 141 mmol/L (136-145) 137 mmol/L (136-145) Potassium Level 4.4 mmol/L (3.5-5.1) 4.2 mmol/L (3.5-5.1) Chloride Level 106 mmol/L (98-107) 107 mmol/L (98-107) Carbon Dioxide Level 28 mmol/L (21-32) 27 mmol/L (21-32) Anion Gap 7 (6-14) 3 (6-14) Blood Urea Nitrogen 24 mg/dL (7-20) 24 mg/dL (7-20) Creatinine 0.9 mg/dL (0.6-1.0) 0.9 mg/dL (0.6-1.0) Estimated GFR (Cockcroft-Gault) 60.4 60.4 BUN/Creatinine Ratio 27 (6-20) Glucose Level 112 mg/dL (70-99) 113 mg/dL (70-99) Calcium Level 9.4 mg/dL (8.5-10.1) 8.4 mg/dL (8.5-10.1) Magnesium Level 2.4 mg/dL (1.8-2.4) Total Bilirubin 0.2 mg/dL (0.2-1.0) Aspartate Amino Transf (AST/SGOT) 21 U/L (15-37) Alanine Aminotransferase (ALT/SGPT) 21 U/L (14-59) Alkaline Phosphatase 102 U/L (46-116) Creatine Kinase 68 U/L (26-192) Troponin I Quantitative < 0.017 ng/mL (0.000-0.055) QO-Giu-A-Type Natriuretic Peptide 225 pg/mL (0-449) Total Protein 6.5 g/dL (6.4-8.2) Albumin 3.5 g/dL (3.4-5.0) Albumin/Globulin Ratio 1.2 (1.0-1.7) Thyroid Stimulating Hormone (TSH) 3.865 uIU/mL (0.358-3.74) White Blood Count 5.0 x10^3/uL (4.0-11.0) 7.6 x10^3/uL (4.0-11.0) Red Blood Count 2.49 x10^6/uL (3.50-5.40) 3.45 x10^6/uL (3.50-5.40) Hemoglobin 7.0 g/dL (12.0-15.5) 9.8 g/dL (12.0-15.5) Hematocrit 21.0 % (36.0-47.0) 29.9 % (36.0-47.0) Mean Corpuscular Volume 85 fL (79-100) 87 fL (79-100) Mean Corpuscular Hemoglobin 28 pg (25-35) 28 pg (25-35) Mean Corpuscular Hemoglobin Concent 33 g/dL (31-37) 33 g/dL (31-37) Red Cell Distribution Width 17.0 % (11.5-14.5) 15.8 % (11.5-14.5) Platelet Count 276 x10^3/uL (140-400) 264 x10^3/uL (140-400) Neutrophils (%) (Auto) 65 % (31-73) 78 % (31-73) Lymphocytes (%) (Auto) 22 % (24-48) 15 % (24-48) Monocytes (%) (Auto) 9 % (0-9) 7 % (0-9) Eosinophils (%) (Auto) 3 % (0-3) 0 % (0-3) Basophils (%) (Auto) 1 % (0-3) 0 % (0-3) Neutrophils # (Auto) 3.3 x10^3uL (1.8-7.7) 5.9 x10^3uL (1.8-7.7) Lymphocytes # (Auto) 1.1 x10^3/uL (1.0-4.8) 1.1 x10^3/uL (1.0-4.8) Monocytes # (Auto) 0.4 x10^3/uL (0.0-1.1) 0.5 x10^3/uL (0.0-1.1) Eosinophils # (Auto) 0.2 x10^3/uL (0.0-0.7) 0.0 x10^3/uL (0.0-0.7) Basophils # (Auto) 0.0 x10^3/uL (0.0-0.2) 0.0 x10^3/uL (0.0-0.2) Prothrombin Time 13.2 SEC (11.7-14.0) Prothromb Time International Ratio 1.1 (0.8-1.1) Activated Partial Thromboplast Time 27 SEC (24-38) Medications Current Medications Dexamethasone (Decadron) 6 mg 1X STAT PO Last administered on 05/12/17 14:35; Start 05/12/17 at 14:11; Stop 05/12/17 at 14:12; Status DC Acetaminophen/ Hydrocodone Bitart (Lortab 5/325) 1 tab 1X ONCE PO Last administered on 05/12/17 14:35; Start 05/12/17 at 14:15; Stop 05/12/17 at 14:16; Status DC Ondansetron HCl (Zofran) 4 mg PRN Q8HRS PRN IV NAUSEA/VOMITING; Start 05/12/17 at 14:45; Stop 05/12/17 at 17:41; Status DC Fentanyl Citrate (Fentanyl 2ml Vial) 50 mcg PRN Q2HR PRN IV PAIN; Start at 14:45; Stop 05/13/17 at 14:44 Acetaminophen/ Hydrocodone Bitart (Lortab 5/325) 1 tab PRN Q4HRS PRN PO PAIN Last administered on 05/13/17 08:22; Start 05/12/17 at 16:00 Ferrous Sulfate (Feosol) 325 mg BIDWMEALS PO Last administered on 05/13/17 08: 21; Start 05/12/17 at 18:00 Losartan Potassium (Cozaar) 25 mg HS PO Last administered on 05/12/17 21:35; Start 05/12/17 at 21:00 Pantoprazole Sodium (Protonix) 40 mg DAILYAC PO ; Start 05/13/17 at 07:30 Acetaminophen (Tylenol) 325 mg PRN Q6HRS PRN PO MILD PAIN / TEMP; Start at 17:45 Hydralazine HCl (Apresoline) 10 mg PRN Q4HRS PRN IVP ELEVATED BP, SEE COMMENTS ; Start 05/12/17 at 17:45 Ondansetron HCl (Zofran) 4 mg PRN Q8HRS PRN IV NAUSEA/VOMITING; Start 05/12/17 at 17:45 Albuterol Sulfate (Ventolin Neb Soln) 2.5 mg PRN Q4HRS PRN NEB SHORTNESS OF BREATH; Start 05/12/17 at 17:45 Docusate Sodium (Colace) 100 mg DAILY PO Last administered on 05/13/17t 08:21; Start 05/13/17 at 09:00 Naproxen (Naprosyn) 500 mg BID PO ; Start 05/13/17 at 11:00 Lidocaine (Lidoderm) 1 patch DAILY TD ; Start 05/13/17 at 11:00 Active Scripts Active Cozaar (Losartan Potassium) 25 Mg Tablet 25 Mg PO HS Pantoprazole Sodium 40 Mg Tablet.dr 40 Mg PO DAILYAC Feosol (Ferrous Sulfate) 325 Mg Tablet 325 Mg PO BIDWMEALS Colace (Docusate Sodium) 100 Mg Capsule 100 Mg PO PRN DAILY PRN Vitals/I & O Vital Sign - Last 24 Hours 05/12/17 05/12/17 05/12/17 05/12/17 12:18 14:39 15:19 15:20 Temp 98.1 98.1 98.1 98.1 98.1 98.1 Pulse 81 75 78 78 Resp 20 20 20 20 B/P (MAP) 174/74 (107) 145/67 (93) 150/60 (90) 150/60 (90) Pulse Ox 96 97 97 97 O2 Delivery Room Air Room Air Room Air 05/12/17 05/12/17 05/12/17 05/12/17 15:36 15:59 16:02 16:17 Temp 98.1 98.1 98.1 98.1 Pulse 78 78 Resp 20 20 B/P (MAP) 150/60 131/59 Pulse Ox 97 O2 Delivery Room Air 05/12/17 05/12/17 05/12/17 05/12/17 17:21 18:15 18:17 19:51 Temp 98.0 97.7 98.7 98.0 97.7 98.7 Pulse 77 87 80 Resp 20 18 20 B/P (MAP) 146/69 141/70 141/66 (91) Pulse Ox 97 97 O2 Delivery Room Air Room Air 05/12/17 05/12/17 05/12/17 05/12/17 20:01 20:01 20:15 21:15 Temp 98.7 98.0 98.0 98.7 98.0 98.0 Pulse 80 84 84 Resp 20 20 20 B/P (MAP) 141/66 143/76 143/76 O2 Delivery Room Air 05/12/17 05/12/17 05/12/17 05/12/17 21:15 21:35 22:15 23:10 Temp 98.4 98.1 98.6 98.4 98.1 98.6 Pulse 76 84 76 77 Resp 16 20 16 B/P (MAP) 146/59 (88) 143/76 136/69 143/61 (88) Pulse Ox 95 95 O2 Delivery Room Air Room Air 05/12/17 05/13/17 05/13/17 05/13/17 23:34 02:19 03:02 03:19 Temp 98.4 98.1 98.4 98.1 Pulse 69 70 Resp 16 20 16 18 B/P (MAP) 140/67 (91) 125/44 (71) Pulse Ox 95 95 O2 Delivery Room Air Room Air Room Air 05/13/17 05/13/17 05/13/17 05/13/17 07:00 08:00 08:22 09:40 Temp 97.9 97.9 Pulse 73 Resp 18 B/P (MAP) 131/60 (83) Pulse Ox 95 95 95 O2 Delivery Room Air Room Air Room Air Room Air Intake and Output 05/12/17 05/12/17 05/13/17 15:00 23:00 07:00 Intake Total 400 ml 200 ml Output Total 0 ml 200 ml Balance 400 ml 0 ml SADIA GODFREY MD May 13, 2017 10:42
[2017-05-13 11:00] VITALS: BP 135/55
[2017-05-13] MEDS ORDERED: LIDOCAINE (700MG/PATCH) PATCH. TD SCH (11:00)
[2017-05-13] MEDS ORDERED: NAPROXEN 500 MG TABLET PO SCH (11:00)
[2017-05-13] MEDS ORDERED: LIDO700A39 TD (12:18)
--- NOTE | 2017-05-13 12:23 | PDOC3 ---
Discharge Summary* Date of Discharge: May 13, 2017 Admitting Diagnosis Problems Medical Problems: (1) Anemia Status: Acute (2) Cervical radiculopathy Status: Acute Problems: Final Diagnosis #1 acute on chronic anemia #2 hypertension #3 acute on chronic neck pain. Brief Hospital Course A 81-year-old female patient was admitted to the hospital for acute on chronic anemia during hospitalization, patient received 2 units of PRBC, posttransfusion her hemoglobin improved to 9.8. She denies any complaints such as hematemesis or hematochezia or gastric ulcers. The patient is asymptomatic however for further workup for her neck pain patient is not interested to have MRI here she would like to follow up with primary care doctor as outpatient basis. Today she didn't clinically stable to go home and follow up with primary doctor for further testing and imaging studies. Discharge exam: Please see my progress note Discharge disposition home Discharge condition stable Total time spent for discharge is 32 minutes for patient education counseling and coordination of care. Follow-up: With primary care doctor in 2-4 weeks. CONDITION AT DISCHARGE: Improved Scheduled Ferrous Sulfate (Feosol), 325 MG PO BIDWMEALS Losartan Potassium (Cozaar), 25 MG PO HS Pantoprazole Sodium (Pantoprazole Sodium), 40 MG PO DAILYAC Scheduled PRN Docusate Sodium (Colace), 100 MG PO PRN DAILY PRN for CONSTIPATION Time Spent Total time spent with patient [] minutes for coordination of care, counseling, and education. SADIA GODFREY MD May 13, 2017 12:22
--- NOTE | 2017-05-13 16:32 | RAD ---
MRI of the cervical spine without contrast 05/13/2017 CLINICAL HISTORY: Neck pain which radiates down the right shoulder. TECHNIQUE: Unenhanced T1-weighted, T2-weighted and inversion recovery sagittal and gradient echo and T2-weighted axial images of the cervical spine were obtained. FINDINGS: Minimal lateral curvature of the cervical spine is seen convex to the left. There is straightening of the normal cervical lordosis. Degenerative signal changes are seen involving all of the disks of the cervical spine. Degenerative signal changes are seen within the marrow surrounding these discs. Loss of height of the C4-5, C5-6 and C6-7 discs is noted. No area of abnormal signal intensity is seen involving the cervical spinal cord. Mild to moderate mucosal thickening is seen involving the sphenoid sinus. At the C2-3 disc space there is a minimal generalized disc bulge. Degenerative changes are seen involving the uncovertebral and facet joints bilaterally. These findings do not result in significant central spinal canal or neural foraminal stenosis. At the C3-4 disc space there is a mild generalized disc bulge. Degenerative changes are seen involving the uncovertebral and facet joints bilaterally. These findings do not result in significant central spinal canal stenosis. Mild to moderate bilateral neural foraminal stenosis is seen. The C4-5 disc space there is a mild generalized disc bulge. Degenerative changes are seen involving the uncovertebral and facet joints, right greater than left. These findings efface the anterior and posterior CSF resulting in mild central spinal canal stenosis without evidence of cord impingement. Mild to moderate right greater than left neural foraminal stenosis is seen. At the C5-6 disc space there is a mild generalized disc bulge. Degenerative changes are seen involving the uncovertebral and facet joints, left greater than right. These findings when combined do not result in significant central spinal canal stenosis. Mild left neural foraminal stenosis is seen. The right neural foramen is patent. At the C6-7 disc space there is a mild generalized disc bulge. Degenerative changes are seen along the uncovertebral and facet joints, left greater than right. These findings do not result in significant central spinal canal stenosis. Mild left neural foraminal stenosis is seen. The right neural foramen is patent. At the C7-T1 disc space there is a minimal generalized disc bulge. Degenerative changes are seen involving the facet joints bilaterally. These findings do not result in significant central spinal canal or neural foraminal stenosis. IMPRESSION: Degenerative changes are seen throughout the cervical spine. These findings result in mild central spinal canal stenosis at C4-5 without evidence of cord impingement. Multilevel neural foraminal stenosis is seen as outlined above. Electronically signed by: Thad Hardy MD (05/13/2017 4:28 PM) [id number]
[2017-05-14] MEDS ORDERED: PANTOPRAZOLE 40 MG TABLET.DR. PO SCH (07:30)
== END 2017-05-13 15:55 | disposition home or self-care (01) ==
LOC: ER 11:52 → 6 SOUTH 14:20
PROVIDERS: ADMIT Internal Medicine; ATTEND Internal Medicine
DX: D64.9 Anemia, unspecified (principal); G89.29 Other chronic pain; I10 Essential (primary) hypertension; M43.12 Spondylolisthesis, cervical region; M47.22 Other spondylosis with radiculopathy, cervical region; G62.9 Polyneuropathy, unspecified; Z85.828 Personal history of other malignant neoplasm of skin; Z82.49 Family history of ischemic heart disease and other diseases of the circulatory system
CPT/HCPCS: 36415; 36430; 72125; 72141; 80048; 80053; 81001; 82550; 83735; 83880; 84443; 84484; 85027; 85610; 85730; 86850; 86900; 86901; 86920; 87086; 93005; 94250; 97140; 97162; 99285; G0378; G8978; G8979; J8540; P9016; A6539; G0379